=== PATIENT | female | born 1955 | race Caucasian/White ===

== ENCOUNTER 2021-11-06 17:43 | Observation (INO) ==
[2021-11-06] MEDS ORDERED: IOPAMIDOL 100 ML BOTTLE IV ONE (17:44)
--- NOTE | 2021-11-06 18:08 | Cat Scan Report ---
CLINICAL INFORMATION: Code stroke COMPARISON: None. TECHNIQUE: 2.5 mm helical slices were obtained in the skull base to vertex. Following reconstruction, axial reformatted images were reviewed at bone and parenchymal windows. The exam was performed using radiation dose optimization techniques including, but not limited to, automated exposure control, adjustment of the mA and/or kV according to patient size and use of iterative reconstruction technique. FINDINGS: The ventricles, sulci, fissures, and cisterns are symmetrically enlarged compatible with mild age-related atrophy. No extra-axial fluid collections are identified. Mild patchy chronic ischemic changes, in the deep cerebral white matter, are expected for age. There is no hemorrhage, mass effect, or edema. Bone windows show no osseous abnormality. IMPRESSION: Mild atrophy and chronic ischemic changes in the deep cerebral white matter-expected for age. No acute findings Interpreted and Authenticated by: Vishal Ortiz 11/06/21
[2021-11-06 18:26] LABS: POC Creatinine 0.8 mg/dL (0.6-1.2)
--- NOTE | 2021-11-06 18:30 | XRay Report ---
CLINICAL INFORMATION: Cough COMPARISON: 12/16/2020 TECHNIQUE: Portable FINDINGS: Moderate cardiomegaly is unchanged. Sternotomy changes noted. Mediastinum and pulmonary vasculature are unremarkable. Small patchy infiltrate is developed in the in the left base. Small left pleural effusion noted. The leak that IMPRESSION: Small patchy left basilar infiltrate and small effusion Interpreted and Authenticated by: Vishal Ortiz 11/06/21
[2021-11-06 19:08] LABS: Basophils # (Auto) 0.02 K/mcL (0.00-0.30); Basophils % (Auto) 0.4 % (0.0-2.0); Eosinophils # (Auto) 0.08 K/mcL (0.00-0.70); Eosinophils % (Auto) 1.7 % (0.0-7.0); Hematocrit 44.3 % (34.1-44.9); Hemoglobin 14.2 g/dL (11.2-15.7); Lymphocytes # (Auto) 1.59 K/mcL (1.50-4.80); Lymphocytes % (Auto) 33.1 % (15.5-49.0); Mean Cell Volume 86.9 fL (80.0-100.0); Mean Corpuscular HGB Conc 32.1 g/dL (31.0-36.0); Mean Platelet Volume 9.9 fL (7.4-10.4); Monocytes # (Auto) 0.46 K/mcL (0.10-0.90); Monocytes % (Auto) 9.6 % (1.0-12.0); Neutrophils % (Auto) 55.2 % (38.0-78.0); Platelet Count 202 K/mcL (140-440); Red Cell Distribution Width 13.7 % (11.5-14.5); WBC 4.8 K/mcL (4.5-11.0)
[2021-11-06 19:22] LABS: INR 1.2 (0.9-1.1); Prothrombin Time 15.9 sec (11.9-14.5)
[2021-11-06 19:33] LABS: ALT/SGPT 69 U/L (<40); AST/SGOT 36 U/L (<32); Albumin 4.9 gm/dL (3.2-5.2); Albumin/Globulin Ratio 1.7 (1.0-2.3); Alkaline Phosphatase 179 U/L (39-117); Bilirubin,Total 0.5 mg/dL (0.1-1.0); Blood Urea Nitrogen 11 mg/dL (8-23); Calcium 9.8 mg/dL (8.6-10.4); Carbon Dioxide 25 mmol/L (22-30); Chloride 99 mmol/L (96-108); Globulin 2.9 gm/dL (2.2-3.7); Glomerular Filtration Rate 78; Glucose 179 mg/dL (70-105)
[2021-11-06] MEDS ORDERED: 0.9 % SODIUM CHLORIDE 1,000 ML IV ONE (19:41)
--- NOTE | 2021-11-06 19:46 | Emergency Department Note ---
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 Patient has no history of TIA CVA. No symptoms of headache visual changes dizziness chest pain shortness of breath nausea vomiting abdominal pain. No numbness tingling or focal weakness. Currently symptoms have improved however patient still states that she feels a little slurred and heavy in her speech. Prior to her symptoms starting daughter states that patient arrived to her home at approximately 1 PM this afternoon was quite active cleaning etc. Related Data Home Medications Medication Instructions Recorded Confirmed acetaminophen 325 mg tablet 325 mg PO PRN PRN 02/13/19 10/07/21 aspirin 81 mg tablet,delayed 81 mg PO DAILY 02/13/19 10/07/21 release atorvastatin 40 mg tablet 40 mg PO HS 02/13/19 10/07/21 carvedilol 12.5 mg tablet 6.25 mg PO BIDCC 02/13/19 10/07/21 digoxin 125 mcg (0.125 mg) tablet 125 mcg PO DAILY 02/13/19 10/07/21 diltiazem HCl 180 mg 180 mg PO DAILY 02/13/19 10/07/21 capsule,extended release 24 hr furosemide 40 mg tablet 40 mg PO PRN PRN 02/13/19 10/07/21 glipizide 10 mg tablet, extended 20 mg PO DAILY 02/13/19 10/07/21 release 24 hr paroxetine HCl 40 mg tablet 50 mg PO DAILY 02/13/19 10/07/21 potassium chloride 10 mEq 10 meq PO BIDCC 02/13/19 10/07/21 tablet,extended release cholecalciferol (vitamin D3) 25 1,000 unit PO DAILY 05/10/19 10/07/21 mcg (1,000 unit) tablet montelukast 10 mg tablet 10 mg PO DAILY 05/10/19 10/07/21 albuterol sulfate 90 mcg/actuation 2 puff INHALATION .Q4-6H PRN g 10/03/20 10/07/21 aerosol inhaler (ProAir HFA) mometasone (Asmanex Twisthaler) 2 inh INHALATION BID PRN 10/03/20 10/07/21 rivaroxaban 20 mg tablet 20 mg PO QAM tab 10/03/20 10/07/21 salmeterol 50 mcg/dose blister 1 inh INHALATION QDAY PRN each 10/03/20 10/07/21 powder for inhalation (Serevent Diskus) spironolactone 25 mg tablet 37.5 mg PO DAILY tab 10/03/20 10/07/21 gabapentin 300 mg capsule 300 mg PO TID cap 10/04/20 10/07/21 insulin aspart U-100 100 unit/mL 15 unit SUB-Q TIDAC ml 10/04/20 10/07/21 (3 mL) subcutaneous pen (Novolog Flexpen U-100 Insulin aspart) linagliptin 5 mg tablet (Tradjenta) 5 mg PO QDAY 10/04/20 10/07/21 lorazepam 0.5 mg tablet 0.5 mg PO QDAY PRN tab 10/04/20 10/07/21 paroxetine HCl 10 mg tablet 10 mg PO QDAY 10/04/20 10/07/21 insulin glargine 100 unit/mL 100 unit SUBCUT QDAY ml 01/14/21 10/07/21 subcutaneous solution (Lantus U-100 Insulin) ascorbate calcium (vitamin C) 500 500 mg PO QDAY 01/29/21 10/07/21 mg tablet buspirone 10 mg tablet 10 mg PO .Unknown tab 01/29/21 10/07/21 hydrocodone 10 mg-acetaminophen See Rx Instructions PO .Q4-6H tab 01/29/21 10/07/21 325 mg tablet hydrocodone 5 mg-acetaminophen 325 See Rx Instructions PO .Q4-6H tab 01/29/21 10/07/21 mg tablet ibuprofen 800 mg tablet 800 mg PO TID 01/29/21 10/07/21 oxycodone-acetaminophen 7.5 mg-325 See Rx Instructions PO .Q4-6H tab 01/29/21 10/07/21 mg tablet (Percocet) paroxetine HCl 20 mg tablet 20 mg PO QDAY 01/29/21 10/07/21 pravastatin 40 mg tablet 40 mg PO QDAY 01/29/21 10/07/21 sennosides 8.6 mg tablet (Natural 8.6 mg PO .unknown tab 01/29/21 10/07/21 Senna Laxative) tramadol 50 mg tablet See Rx Instructions PO TID 01/29/21 10/07/21 dapagliflozin 10 mg tablet 10 mg PO QAM 10/07/21 10/07/21 [facility] prednisone PO 10/07/21 10/07/21 aripiprazole 5 mg PO DAILY 11/06/21 11/06/21 donepezil 5 mg PO DAILY 11/06/21 11/06/21 terbinafine 250 mg PO DAILY 11/06/21 11/06/21 tizanidine 2 - 4 mg PO PRN PRN 11/06/21 11/06/21 Previous Rx's Medication Instructions Recorded nitroglycerin 0.4 mg sublingual 0.4 mg SL Q5MINP PRN #1 vial 01/01/17 tablet hydrocodone 7.5 mg-acetaminophen 1 - 2 tab PO Q6HP PRN #30 tab 05/18/19 325 mg tablet Allergies Allergy/AdvReac Type Severity Reaction Status Date / Time naproxen [NAPROXEN] Allergy Severe Anaphylaxis, Verified 10/07/21 11:33 CAN'T BREATHE, SWELLING Sulfa (Sulfonamide Allergy Severe Rash, HIVES Verified 10/07/21 11:33 Antibiotics) [SULFA (SULFONAMIDE ANTIBIOTICS)] Penicillins Allergy Intermediate Rash Verified 10/07/21 11:33 Flecainide Allergy Mild Rash Verified 10/07/21 11:33 lisinopril Allergy Mild Rash Verified 10/07/21 11:33 amiodarone AdvReac Severe Vomiting Verified 10/07/21 11:33 ADHESIVE TAPE Allergy Mild Rash Uncoded 10/07/21 11:33 -PAPER TAPE OK Review of Systems ROS ROS Narrative: 10 point review of system is otherwise negative except as mentioned in HPI. PFSH Narrative Patient History Narrative: Narrative: Medical/Surgical/Family History All Active Problems (Updated 11/06/21 @ 19:53 by Barbara Thomas MD) Dysarthria (Acute) Gout (Chronic) Diabetes (Chronic) Low back pain (Chronic) Chest pain (Acute) Menopausal state (Chronic) Pain in unspecified joint (Chronic) Pain, unspecified (Chronic) Osteoarthrosis, hip (Chronic) Opioid dependence, uncomplicated (Chronic) Morbid (severe) obesity due to excess calories (Chronic) Obesity (Chronic) Sleep apnea (Chronic) COPD (chronic obstructive pulmonary disease) (Chronic) History of total left hip arthroplasty (Chronic ~2019) History of ankle surgery (Chronic 05/18/19) History of hip surgery (Chronic ~07/2018) History of surgery on left wrist (Chronic ~01/2019) History of colonoscopy (Chronic 04/13/13) History of heart surgery (Chronic) History of biopsy (Chronic 08/04/13) History of liver biopsy (Chronic 09/04/13) History of arthroscopy of left shoulder (Chronic 07/21/17) History of cholecystectomy (Chronic ~05/2012) History of appendectomy (Chronic) History of tonsillectomy (Chronic) History of heart surgery (Chronic) Pain, joint, ankle, right (Chronic) Pain of left hip joint (Chronic) Chronic low back pain (Chronic) Pain in joint, multiple sites (Chronic) History of total hysterectomy (Chronic) Chronic dermatitis (Chronic) Chronic constipation (Chronic) Urinary incontinence (Chronic) Other deformities of toe(s) (acquired), left foot (Chronic) Hip osteoarthritis (Chronic) Depression (Chronic) Anxiety (Chronic) Nonalcoholic fatty liver disease (Chronic) Lower extremity edema (Chronic) Vitamin D deficiency (Chronic) Hyperlipidemia (Chronic) Anemia (Chronic) Diabetic neuropathy (Chronic) Microalbuminuric diabetic nephropathy (Chronic) Type 2 diabetes mellitus with hyperglycemia (Chronic) Hypertension (Chronic) Cardiomyopathy (Chronic) Atrial fibrillation (Chronic) Asthma (Chronic) MCFP (current) use of opiate analgesic (Chronic) Other instability, right ankle (Chronic) Strain of muscle(s) and tendon(s) of peroneal muscle group at lower leg level, right leg, subsequent encounter (Chronic) Hematoma (Chronic) Other injury of muscle(s) and tendon(s) of peroneal muscle group at lower leg level, left leg, sequela (Chronic) Ganglion cyst (Chronic) Dysuria (Chronic) Vaginitis (Chronic) Body mass index 40.0-44.9, adult (Chronic) Dry cough (Chronic) History of itching of eye (Chronic) Hematuria (Chronic) Suprapubic pain (Chronic) Congestive heart failure (Chronic) Hypoxia (Chronic) Chest pain (Chronic) PAC (premature atrial contraction) (Chronic) Hip pain, right (Chronic) Numbness of right anterior thigh (Chronic) Acute sinus infection (Chronic) Migraine (Chronic) Medical History Anemia Anxiety Asthma Atrial fibrillation Body mass index 40.0-44.9, adult Cardiomyopathy Chest pain Chronic constipation Chronic dermatitis Chronic low back pain Congestive heart failure COPD (chronic obstructive pulmonary disease) Depression Diabetes Diabetic neuropathy Dry cough Dysuria Ganglion cyst Gout Hematoma Hematuria Hip osteoarthritis History of itching of eye Hyperlipidemia Hypertension Hypoxia MCFP (current) use of opiate analgesic Low back pain Lower extremity edema Menopausal state Microalbuminuric diabetic nephropathy Morbid (severe) obesity due to excess calories Nonalcoholic fatty liver disease Obesity Opioid dependence, uncomplicated Osteoarthrosis, hip Other deformities of toe(s) (acquired), left foot Other injury of muscle(s) and tendon(s) of peroneal muscle group at lower leg level, left leg, sequela Other instability, right ankle PAC (premature atrial contraction) Pain in joint, multiple sites Pain in unspecified joint Pain of left hip joint Pain, joint, ankle, right Pain, unspecified Sleep apnea Strain of muscle(s) and tendon(s) of peroneal muscle group at lower leg level, right leg, subsequent encounter Suprapubic pain Type 2 diabetes mellitus with hyperglycemia Urinary incontinence Vaginitis Vitamin D deficiency Surgical History History of ankle surgery (05/18/19) Dr. Carter, Right ankle, History of appendectomy History of arthroscopy of left shoulder (07/21/17) History of biopsy (08/04/13) esophageal biopsy;positive for squamous esophageal mucosa with chronic inflammation -- Dr. Sampson History of cholecystectomy (~05/2012) History of colonoscopy (04/13/13) History of heart surgery Hemangioma removal History of heart surgery 1973 and 2010 History of hip surgery (~07/2018) Right - Dr. Gonzalez History of liver biopsy (09/04/13) Core liver biopsy History of surgery on left wrist (~01/2019) History of tonsillectomy History of total hysterectomy History of total left hip arthroplasty (~2019) Family History Mother , age 86 Diabetes Heart disease Rheumatoid arthritis History of blood clots Heart attack Gout Father , age 89 Diabetes Rheumatoid arthritis Heart attack Coronary artery disease Family/Other Gout Sibling Social History Smoking Status: Former smoker Alcohol Intake Frequency: does not drink Substance Use: does not use Exam Narrative Narrative: (Please note that portions of this note may have been completed with a voice recognition program. Efforts were made to edit the dictations but occasionally words are mis-transcribed) CONSTITUTIONAL: Well-nourished well-hydrated adult female. Resting comfortably. Not in acute distress. Non toxic. Awake alert and oriented x3. Cooperative, follows commands. HEAD: Normocephalic. Atraumatic. EYES: EOMI. PERRL. no gross peripheral visual field defects. no nystagmus ENT: No drooling stridor. No facial droop. Does have mild dysarthria however no aphasia NECK: Supple. Full range of motion. Trachea midline CARDIOVASCULAR: Adequate peripheral perfusion. S1-S2. Regular rate and rhythm. No murmurs rubs gallops. No JVD. No lower extremity edema. +2 radial pulses bilaterally. PULMONARY: Nonlabored. Speaking full sentences. Clear to auscultation bilaterally. No rhonchi wheeze or crackles. ABDOMINAL: Soft. Nondistended. Nontender. Positive bowel sounds. EXTREMITIES: No gross deformities. Moves all 4 extremities with good strength and tone. SKIN: Warm and dry. No rash. No petechiae. NEUROLOGY: Sensation is intact. No gross focal deficits. GCS of 15. No cerebellar deficits. NIH SS 1 General Limitations: no limitations Course Vital Signs Vital signs: Vital Signs Temperature 37.1 C 11/06/21 17:43 Pulse Rate 83 11/06/21 17:43 Respiratory Rate 18 11/06/21 17:43 Blood Pressure 154/69 11/06/21 17:43 Pulse Oximetry (%) 90 11/06/21 17:43 Temperature 37.1 C 11/06/21 17:43 Pulse Rate 78 11/06/21 19:55 Respiratory Rate 13 11/06/21 19:55 Blood Pressure 135/68 11/06/21 19:47 Pulse Oximetry (%) 95 11/06/21 19:55 MDM MDM Narrative Medical decision making narrative: Differential diagnosis includes CVA ischemic hemorrhagic mass lesion dissection electrolyte abnormality arrhythmia etc. stroke alert. Per daughter glucose was checked at home and it was 170. CT brain was negative per radiology call back at 6:10pm. Patient did take her Xarelto as well as aspirin this morning. I did speak to the stroke neurologist at 6:23 PM. Does agree with work-up thus far CT angio and admission. Twelve-lead EKG per ED MD interpretation does show a normal sinus rhythm at 80 bpm. Normal axis. Left ventricular hypertrophy. With no ST elevations or depressions. No T wave abnormalities. No ectopy. Normal intervals. CT angio of the head and neck is negative per radiologist for significant stenosis. Does show incidental cardiomegaly, large inguinal mass containing multiple round calcifications, CAD. patient is otherwise resting comfortably. Continues have some mild dysarthria. Otherwise no complaints. Chest x-ray does show left basilar infiltrate effusion. However patient denies fever chills cough shortness of breath. Lungs are clear to auscultation on my exam. She is 95% on room air. No white count. We will continue to monitor no antibiotics at this time. Urine dip is negative for infection. Patient and daughter updated on results clinical impressions treatment plan. Will admit for stroke work-up. Agreeable questions have answered at length. Hospitalist has been paged. Dr Angela given report and does accept Final impressions 1. Dysarthria, suspect ischemic CVA 2. Paroxysmal atrial fibrillation on Xarelto 3. Left pleural effusion Disposition: admit tele condition: fair Lab Data Result diagrams: 11/06/21 18:17 11/06/21 18:17 Labs: Lab Results 11/06/21 11/06/21 11/06/21 Range/Units 18:17 18:17 18:17 WBC 4.8 (4.5-11.0) K/mcL RBC 5.10 (3.59-5.38) M/mcL Hgb 14.2 (11.2-15.7) g/dL Hct 44.3 (34.1-44.9) % MCV 86.9 (80.0-100.0) fL MCH 27.8 (26.0-34.0) pg MCHC 32.1 (31.0-36.0) g/dL RDW 13.7 (11.5-14.5) % Plt Count 202 (140-440) K/mcL MPV 9.9 (7.4-10.4) fL Neut % (Auto) 55.2 (38.0-78.0) % Lymph % (Auto) 33.1 (15.5-49.0) % [place] % (Auto) 9.6 (1.0-12.0) % Eos % (Auto) 1.7 (0.0-7.0) % Baso % (Auto) 0.4 (0.0-2.0) % Lymph # (Auto) 1.59 (1.50-4.80) K/mcL [place] # (Auto) 0.46 (0.10-0.90) K/mcL Eos # (Auto) 0.08 (0.00-0.70) K/mcL Baso # (Auto) 0.02 (0.00-0.30) K/mcL Absolute Neutrophils 2.65 (1.80-8.00) K/mcL PT 15.9 H (11.9-14.5) sec INR 1.2 H (0.9-1.1) APTT (20.0-37.0) sec Sodium 137 (133-145) mmol/L Potassium 3.7 (3.3-5.1) mmol/L Chloride 99 (96-108) mmol/L Carbon Dioxide 25 (22-30) mmol/L Anion Gap 13.0 (8.0-16.0) BUN 11 (8-23) mg/dL Creatinine 0.8 (0.6-1.1) mg/dL POC Creatinine 0.8 (0.6-1.2) mg/dL GFR Calculation 78 Glucose 179 H (70-105) mg/dL Calcium 9.8 (8.6-10.4) mg/dL Total Bilirubin 0.5 (0.1-1.0) mg/dL AST 36 H (<32) U/L ALT 69 H (<40) U/L Alkaline Phosphatase 179 H (39-117) U/L Troponin T (<0.03) ng/mL Total Protein 7.8 (5.9-8.4) gm/dL Albumin 4.9 (3.2-5.2) gm/dL Globulin 2.9 (2.2-3.7) gm/dL Albumin/Globulin Ratio 1.7 (1.0-2.3) Urine Color Urine Appearance (Clear) Urine pH (5.0-9.0) Ur Specific [place] (1.000-1.035) Urine Protein (Negative) mg/dL Urine Glucose (UA) (Negative) mg/dL Urine Ketones (Negative) mg/dL Urine Occult Blood (Negative) brandon/mcL Urine Nitrate (Negative) Urine Bilirubin (Negative) mg/dL Urine Urobilinogen mg/dL Ur Leukocyte Esterase (Negative) /uL Urine RBC (0-3) /hpf Urine WBC (0-4) /hpf Ur Squamous Epith Cells (0-4) /hpf Urine Bacteria (0) /hpf Ur Culture Indicated? 11/06/21 11/06/21 11/06/21 Range/Units 18:17 18:17 19:10 WBC (4.5-11.0) K/mcL RBC (3.59-5.38) M/mcL Hgb (11.2-15.7) g/dL Hct (34.1-44.9) % MCV (80.0-100.0) fL MCH (26.0-34.0) pg MCHC (31.0-36.0) g/dL RDW (11.5-14.5) % Plt Count (140-440) K/mcL MPV (7.4-10.4) fL Neut % (Auto) (38.0-78.0) % Lymph % (Auto) (15.5-49.0) % [place] % (Auto) (1.0-12.0) % Eos % (Auto) (0.0-7.0) % Baso % (Auto) (0.0-2.0) % Lymph # (Auto) (1.50-4.80) K/mcL [place] # (Auto) (0.10-0.90) K/mcL Eos # (Auto) (0.00-0.70) K/mcL Baso # (Auto) (0.00-0.30) K/mcL Absolute Neutrophils (1.80-8.00) K/mcL PT (11.9-14.5) sec INR (0.9-1.1) APTT 30.9 (20.0-37.0) sec Sodium (133-145) mmol/L Potassium (3.3-5.1) mmol/L Chloride (96-108) mmol/L Carbon Dioxide (22-30) mmol/L Anion Gap (8.0-16.0) BUN (8-23) mg/dL Creatinine (0.6-1.1) mg/dL POC Creatinine (0.6-1.2) mg/dL GFR Calculation Glucose (70-105) mg/dL Calcium (8.6-10.4) mg/dL Total Bilirubin (0.1-1.0) mg/dL AST (<32) U/L ALT (<40) U/L Alkaline Phosphatase (39-117) U/L Troponin T < 0.01 (<0.03) ng/mL Total Protein (5.9-8.4) gm/dL Albumin (3.2-5.2) gm/dL Globulin (2.2-3.7) gm/dL Albumin/Globulin Ratio (1.0-2.3) Urine Color Yellow Urine Appearance Clear (Clear) Urine pH 5.5 (5.0-9.0) Ur Specific [place] 1.015 (1.000-1.035) Urine Protein Negative (Negative) mg/dL Urine Glucose (UA) >=1000 mg/dl A (Negative) mg/dL Urine Ketones Negative (Negative) mg/dL Urine Occult Blood Negative (Negative) brandon/mcL Urine Nitrate Negative (Negative) Urine Bilirubin Negative (Negative) mg/dL Urine Urobilinogen Normal mg/dL Ur Leukocyte Esterase Negative (Negative) /uL Urine RBC 1 (0-3) /hpf Urine WBC < 1 (0-4) /hpf Ur Squamous Epith Cells < 1 (0-4) /hpf Urine Bacteria None (0) /hpf Ur Culture Indicated? No Discharge Plan Patient/Caregiver Discharge Instructions Pt seen by TRUST MANAGER/PA only: No Clinical Impression: Dysarthria Patient Disposition: Xfer As Outpt/Obs ([facility]) Follow up with: Jocelyn Dahl ARNP [Primary Care Provider] - Prescriptions: No Action Serevent Diskus 50 mcg/dose blister with device 1 inh INHALATION QDAY PRN (Reason: asthma) 0RF albuterol sulfate [ProAir HFA] 90 mcg/actuation HFA aerosol inhaler 2 puff INHALATION .Q4-6H PRN (Reason: Shortness Of Breath) 0RF Asmanex Twisthaler 220 mcg/ actuation (120) aerosol powdr breath activated 2 inh INHALATION BID PRN (Reason: asthma) 0RF Tradjenta 5 mg tablet 5 mg PO QDAY 0RF paroxetine HCl 10 mg tablet 10 mg PO QDAY 0RF tramadol 50 mg tablet See Rx Instructions PO TID 0RF Rx Instructions: 50mg, 1-2 tabs PO three times daily; ibuprofen 800 mg tablet 800 mg PO PRN PRN (Reason: Pain) 0RF hydrocodone-acetaminophen 5-325 mg tablet 1 - 2 tab PO .Q4-6H PRN (Reason: Pain) 0RF hydrocodone-acetaminophen 10-325 mg tablet See Rx Instructions PO .Q4-6H 0RF Rx Instructions: 1-2 tablets PO .Q4-6H; oxycodone-acetaminophen [Percocet] 7.5-325 mg tablet See Rx Instructions PO .Q4-6H 0RF Rx Instructions: 1-2 tabs PO .Q4-6H; sennosides [Natural Senna Laxative] 8.6 mg tablet 8.6 mg PO .unknown 0RF pravastatin 40 mg tablet 40 mg PO QDAY 0RF paroxetine HCl 20 mg tablet 20 mg PO QDAY 0RF ascorbate calcium (vitamin C) 500 mg tablet 500 mg PO QDAY 0RF buspirone 10 mg tablet 7.5 mg PO TID 0RF Lantus U-100 Insulin 100 unit/mL solution 100 unit subcut QDAY 0RF prednisone 20 mg PO DAILY 0RF Rx Instructions: unsure of what dose Farxiga 10 mg tablet 10 mg PO QAM 0RF nitroglycerin 0.4 MG tablet, sublingual 0.4 mg SL Q5MINP PRN (Reason: chest pain or heaviness) Qty: 1 0RF atorvastatin 40 MG tablet 40 mg PO HS 0RF Label Comments: NO LONGER TAKING USING PRAVASTATIN NOW acetaminophen 325 MG tablet 325 mg PO PRN PRN (Reason: Pain) 0RF diltiazem HCl 180 MG capsule,extended release 24hr 180 mg PO DAILY 0RF glipizide 10 MG tablet extended release 24hr 20 mg PO DAILY 0RF potassium chloride 10 MEQ tablet extended release 10 meq PO BIDCC 0RF aspirin 81 MG tablet,delayed release (DR/EC) 81 mg PO DAILY 0RF digoxin 125 MCG tablet 125 mcg PO DAILY 0RF paroxetine HCl 40 MG tablet 50 mg PO DAILY 0RF carvedilol 12.5 MG tablet 6.25 mg PO BIDCC 0RF Rx Instructions: give with food (meal/snack) furosemide 40 MG tablet 40 mg PO PRN PRN (Reason: Edema) 0RF spironolactone 25 mg tablet 37.5 mg PO DAILY 0RF rivaroxaban 20 mg tablet 20 mg PO QAM 0RF Label Comments: STOP 5 DAYS PRIOR TO SURGERY PER DR DAVIS AND RESUME FOLLOWING SURGERY lorazepam 0.5 mg tablet 0.5 mg PO PRN PRN (Reason: Anxiety) 0RF gabapentin 300 mg capsule 300 mg PO TID 0RF montelukast 10 MG tablet 10 mg PO DAILY 0RF cholecalciferol (vitamin D3) 1,000 UNIT tablet 1,000 unit PO DAILY 0RF hydrocodone-acetaminophen 1 TAB tablet 1 - 2 tab PO Q6HP PRN (Reason: Pain) Qty: 30 0RF insulin aspart U-100 [Novolog Flexpen U-100 Insulin] 100 unit/mL (3 mL) insulin pen 15 unit SUB-Q TIDAC 0RF Rx Instructions: TAKES IF BS >200 donepezil 5 mg tablet 5 mg PO DAILY 0RF tizanidine 2 mg tablet 2 - 4 mg PO PRN PRN (Reason: Muscle Spasticity) 0RF Rx Instructions: TAKE 1-2 TABLETS BY MOUTH EVERY 4-6 HOURS NEEDED FOR MUSCLE TENSION. WILL CAUSE SEDATION. aripiprazole 5 MG tablet 5 mg PO DAILY 0RF Rx Instructions: AT BEDTIME. terbinafine 250 MG tablet 250 mg PO DAILY 0RF
[2021-11-06 19:52] LABS: Appearance,Urine Clear (Clear); Bilirubin,Urine Negative (Negative); Color,Urine Yellow; Culture Indicated,Urine No; Glucose,Urine (UA) >=1000 mg/dL mg/dL (Negative); Ketones,Urine Negative (Negative); Leukocyte Esterase,Urine Negative /uL (Negative); Nitrate,Urine Negative (Negative); PH,Urine 5.5 (5.0-9.0); Protein,Urine Negative (Negative); Specific Gravity,Urine 1.015 (1.000-1.035); Urine Blood Negative ery/mcL (Negative); Urine RBC 1 /hpf (0-3); Urine Squamous Epithelial Cell < 1 /hpf (0-4); Urine WBC < 1 /hpf (0-4); Urobilinogen,Urine Normal
--- NOTE | 2021-11-06 20:19 | Internal Med History&Physical ---
HPI History of Present Illness Patient information: Note initiated : 11/06/21 at 8:14 pm Service Date, if different from initiated Date: [] Patient: Gisselle Figueredo a 65 y/o F admitted on for Trouble finding words. Chief Complaint: [] Chief complaint: Aphasia History of present illness: Ms. 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 The patient says that her symptoms began this evening at about 7:30 PM. Patient had a noncontrast head CT in the ED which did not show any acute changes. CTA head and neck report was pending when I spoke with the ED provider however I was told that radiology felt they were unremarkable. The patient was reviewed with telestroke neurology, recommendation was made to admit the patient to the hospital for further work-up for possible stroke. I evaluated the patient in the emergency department, her expressive aphasia had essentially resolved. She says that she had similar symptoms a few months ago which was evaluated at [facility] where the work-up including MRI brain was negative. She also had a similar episode about a year ago. Other work-up in the ED included CBC and chemistry panel which were unremarkable. Chest x-ray showed a small patchy left basilar infiltrate and small effusion however the patient clinically did not have any symptoms of pneumonia. Procalcitonin was 0.13. Review of system Constitutional: no fever, fatigue, or weight loss Eyes: no vision changes or pain Cardiovascular: no chest pain, no palpitations Respiratory: no cough or dyspnea Gastrointestinal: no abdominal pain, no nausea, vomiting, or diarrhea Genitourinary: no dysuria or difficulty voiding Musculoskeletal: no arthralgia or myalgia Integumentary: no skin lesion or wound Neurological: Positive for difficulty talking, focal weakness or numbness Psychiatric: no anxiety or depression Physical exam Head: Atraumatic, normal inspection. Eyes: normal appearance, no scleral icterus. Neck: full ROM Respiratory: no respiratory distress. Cardiovascular: Sternotomy scar, normal rate and rhythm, S1, S2. GI/Abdominal: soft, nontender, no guarding. Extremities: full range of motion, nontender. Neurological: CN II-XII intact, intact motor, intact sensation. Psychiatric: normal mood. Skin: warm, normal color PFSH PFSH All Active Problems (Updated 11/06/21 @ 19:53 by Barbara Thomas MD) Dysarthria (Acute) Gout (Chronic) Diabetes (Chronic) Low back pain (Chronic) Chest pain (Acute) Menopausal state (Chronic) Pain in unspecified joint (Chronic) Pain, unspecified (Chronic) Osteoarthrosis, hip (Chronic) Opioid dependence, uncomplicated (Chronic) Morbid (severe) obesity due to excess calories (Chronic) Obesity (Chronic) Sleep apnea (Chronic) COPD (chronic obstructive pulmonary disease) (Chronic) History of total left hip arthroplasty (Chronic ~2019) History of ankle surgery (Chronic 05/18/19) History of hip surgery (Chronic ~07/2018) History of surgery on left wrist (Chronic ~01/2019) History of colonoscopy (Chronic 04/13/13) History of heart surgery (Chronic) History of biopsy (Chronic 08/04/13) History of liver biopsy (Chronic 09/04/13) History of arthroscopy of left shoulder (Chronic 07/21/17) History of cholecystectomy (Chronic ~05/2012) History of appendectomy (Chronic) History of tonsillectomy (Chronic) History of heart surgery (Chronic) Pain, joint, ankle, right (Chronic) Pain of left hip joint (Chronic) Chronic low back pain (Chronic) Pain in joint, multiple sites (Chronic) History of total hysterectomy (Chronic) Chronic dermatitis (Chronic) Chronic constipation (Chronic) Urinary incontinence (Chronic) Other deformities of toe(s) (acquired), left foot (Chronic) Hip osteoarthritis (Chronic) Depression (Chronic) Anxiety (Chronic) Nonalcoholic fatty liver disease (Chronic) Lower extremity edema (Chronic) Vitamin D deficiency (Chronic) Hyperlipidemia (Chronic) Anemia (Chronic) Diabetic neuropathy (Chronic) Microalbuminuric diabetic nephropathy (Chronic) Type 2 diabetes mellitus with hyperglycemia (Chronic) Hypertension (Chronic) Cardiomyopathy (Chronic) Atrial fibrillation (Chronic) Asthma (Chronic) assisted (current) use of opiate analgesic (Chronic) Other instability, right ankle (Chronic) Strain of muscle(s) and tendon(s) of peroneal muscle group at lower leg level, right leg, subsequent encounter (Chronic) Hematoma (Chronic) Other injury of muscle(s) and tendon(s) of peroneal muscle group at lower leg level, left leg, sequela (Chronic) Ganglion cyst (Chronic) Dysuria (Chronic) Vaginitis (Chronic) Body mass index 40.0-44.9, adult (Chronic) Dry cough (Chronic) History of itching of eye (Chronic) Hematuria (Chronic) Suprapubic pain (Chronic) Congestive heart failure (Chronic) Hypoxia (Chronic) Chest pain (Chronic) PAC (premature atrial contraction) (Chronic) Hip pain, right (Chronic) Numbness of right anterior thigh (Chronic) Acute sinus infection (Chronic) Migraine (Chronic) Medical History Anemia Anxiety Asthma Atrial fibrillation Body mass index 40.0-44.9, adult Cardiomyopathy Chest pain Chronic constipation Chronic dermatitis Chronic low back pain Congestive heart failure COPD (chronic obstructive pulmonary disease) Depression Diabetes Diabetic neuropathy Dry cough Dysuria Ganglion cyst Gout Hematoma Hematuria Hip osteoarthritis History of itching of eye Hyperlipidemia Hypertension 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 Low back pain Lower extremity edema Menopausal state Microalbuminuric diabetic nephropathy Morbid (severe) obesity due to excess calories Nonalcoholic fatty liver disease Obesity Opioid dependence, uncomplicated Osteoarthrosis, hip Other deformities of toe(s) (acquired), left foot Other injury of muscle(s) and tendon(s) of peroneal muscle group at lower leg level, left leg, sequela Other instability, right ankle PAC (premature atrial contraction) Pain in joint, multiple sites Pain in unspecified joint Pain of left hip joint Pain, joint, ankle, right Pain, unspecified Sleep apnea Strain of muscle(s) and tendon(s) of peroneal muscle group at lower leg level, right leg, subsequent encounter Suprapubic pain Type 2 diabetes mellitus with hyperglycemia Urinary incontinence Vaginitis Vitamin D deficiency Surgical History History of ankle surgery (05/18/19) Dr. Carter, Right ankle, History of appendectomy History of arthroscopy of left shoulder (07/21/17) History of biopsy (08/04/13) esophageal biopsy;positive for squamous esophageal mucosa with chronic inflammation -- Dr. Sampson History of cholecystectomy () History of colonoscopy (08/15/13) History of heart surgery Hemangioma removal History of heart surgery 1973 and 2010 History of hip surgery (~07/2018) Right - Dr. Gonzalez History of liver biopsy (09/04/13) Core liver biopsy History of surgery on left wrist (~01/2019) History of tonsillectomy History of total hysterectomy History of total left hip arthroplasty (~2019) Family History Mother , age 86 Diabetes Heart disease Rheumatoid arthritis History of blood clots Heart attack Gout Father , age 89 Diabetes Rheumatoid arthritis Heart attack Coronary artery disease Family/Other Gout Sibling Social History marital status: occupational status: disabled physical activity: none smoking status: Former smoker alcohol intake frequency: does not drink substance use type: does not use MEDS/ALLERGIES Home Medications and Allergies Home Medications Medication Instructions Recorded Confirmed Type nitroglycerin 0.4 mg sublingual 0.4 mg SL Q5MINP PRN #1 vial 01/01/17 11/06/21 Rx tablet aspirin 81 mg tablet,delayed 81 mg PO DAILY 02/13/19 11/06/21 History release atorvastatin 40 mg tablet 40 mg PO HS 02/13/19 11/06/21 History carvedilol 12.5 mg tablet 6.25 mg PO BIDCC 02/13/19 11/06/21 History digoxin 125 mcg (0.125 mg) tablet 125 mcg PO DAILY 02/13/19 11/06/21 History diltiazem HCl 180 mg 180 mg PO DAILY 02/13/19 11/06/21 History capsule,extended release 24 hr furosemide 40 mg tablet 40 mg PO PRN PRN 02/13/19 11/06/21 History glipizide 10 mg tablet, extended 20 mg PO DAILY 02/13/19 11/06/21 History release 24 hr paroxetine HCl 40 mg tablet 50 mg PO DAILY 02/13/19 11/06/21 History potassium chloride 10 mEq 10 meq PO BIDCC 02/13/19 11/06/21 History tablet,extended release cholecalciferol (vitamin D3) 25 1,000 unit PO DAILY 05/10/19 11/06/21 History mcg (1,000 unit) tablet montelukast 10 mg tablet 10 mg PO DAILY 05/10/19 11/06/21 History albuterol sulfate 90 mcg/actuation 2 puff INHALATION .Q4-6H PRN g 10/03/20 11/06/21 History aerosol inhaler (ProAir HFA) mometasone (Asmanex Twisthaler) 2 inh INHALATION BID PRN 10/03/20 11/06/21 History salmeterol 50 mcg/dose blister 1 inh INHALATION QDAY PRN each 10/03/20 11/06/21 History powder for inhalation (Serevent Diskus) spironolactone 25 mg tablet 37.5 mg PO DAILY tab 10/03/20 11/06/21 History gabapentin 300 mg capsule 300 mg PO TID cap 10/04/20 11/06/21 History insulin aspart U-100 100 unit/mL 15 unit SUB-Q TIDAC ml 10/04/20 11/06/21 History (3 mL) subcutaneous pen (Novolog Flexpen U-100 Insulin aspart) linagliptin 5 mg tablet (Tradjenta) 5 mg PO QDAY 10/04/20 11/06/21 History lorazepam 0.5 mg tablet 0.5 mg PO PRN PRN tab 10/04/20 11/06/21 History paroxetine HCl 10 mg tablet 10 mg PO QDAY 10/04/20 11/06/21 History insulin glargine 100 unit/mL 100 unit SUBCUT QDAY ml 01/14/21 11/06/21 History subcutaneous solution (Lantus U-100 Insulin) ascorbate calcium (vitamin C) 500 500 mg PO QDAY 01/29/21 11/06/21 History mg tablet buspirone 10 mg tablet 7.5 mg PO TID tab 01/29/21 11/06/21 History hydrocodone 5 mg-acetaminophen 325 1 - 2 tab PO .Q4-6H PRN tab 01/29/21 11/06/21 History mg tablet ibuprofen 800 mg tablet 800 mg PO PRN PRN 01/29/21 11/06/21 History prednisone 20 mg PO DAILY 10/07/21 11/06/21 History aripiprazole 5 mg PO DAILY 11/06/21 11/06/21 History donepezil 5 mg PO DAILY 11/06/21 11/06/21 History terbinafine 250 mg PO DAILY 11/06/21 11/06/21 History tizanidine 2 - 4 mg PO PRN PRN 11/06/21 11/06/21 History Allergies Allergy/AdvReac Type Severity Reaction Status Date / Time naproxen [NAPROXEN] Allergy Severe Anaphylaxis, Verified 10/07/21 11:33 CAN'T BREATHE, SWELLING Sulfa (Sulfonamide Allergy Severe Rash, HIVES Verified 10/07/21 11:33 Antibiotics) [SULFA (SULFONAMIDE ANTIBIOTICS)] Penicillins Allergy Intermediate Rash Verified 10/07/21 11:33 Flecainide Allergy Mild Rash Verified 10/07/21 11:33 lisinopril Allergy Mild Rash Verified 10/07/21 11:33 amiodarone AdvReac Severe Vomiting Verified 10/07/21 11:33 ADHESIVE TAPE Allergy Mild Rash Uncoded 10/07/21 11:33 -PAPER TAPE OK EXAM Constitutional Vitals: Temp Pulse Resp BP Pulse Ox 98.8 F 78 13 135/68 95 11/06/21 17:43 11/06/21 19:55 11/06/21 19:55 11/06/21 19:47 11/06/21 19:55 DATA Data Completed and Pending Labs: Labs from last 24 hours 11/06/21 11/06/21 11/06/21 19:10 18:17 18:17 WBC RBC Hgb Hct MCV MCH MCHC RDW Plt Count MPV Neut % (Auto) Lymph % (Auto) Hughes % (Auto) Eos % (Auto) Baso % (Auto) Lymph # (Auto) Hughes # (Auto) Eos # (Auto) Baso # (Auto) Absolute Neutrophils PT INR APTT 30.9 Sodium Potassium Chloride Carbon Dioxide Anion Gap BUN Creatinine POC Creatinine GFR Calculation Glucose Calcium Total Bilirubin AST ALT Alkaline Phosphatase Troponin T < 0.01 Total Protein Albumin Globulin Albumin/Globulin Ratio Urine Color Yellow Urine Appearance Clear Urine pH 5.5 Ur Specific Wrights 1.015 Urine Protein Negative Urine Glucose (UA) >=1000 mg/dl A Urine Ketones Negative Urine Occult Blood Negative Urine Nitrate Negative Urine Bilirubin Negative Urine Urobilinogen Normal Ur Leukocyte Esterase Negative Urine RBC 1 Urine WBC < 1 Ur Squamous Epith Cells < 1 Urine Bacteria None Ur Culture Indicated? No 11/06/21 11/06/21 11/06/21 18:17 18:17 18:17 WBC 4.8 RBC 5.10 Hgb 14.2 Hct 44.3 MCV 86.9 MCH 27.8 MCHC 32.1 RDW 13.7 Plt Count 202 MPV 9.9 Neut % (Auto) 55.2 Lymph % (Auto) 33.1 Hughes % (Auto) 9.6 Eos % (Auto) 1.7 Baso % (Auto) 0.4 Lymph # (Auto) 1.59 Hughes # (Auto) 0.46 Eos # (Auto) 0.08 Baso # (Auto) 0.02 Absolute Neutrophils 2.65 PT 15.9 H INR 1.2 H APTT Pending Sodium 137 Potassium 3.7 Chloride 99 Carbon Dioxide 25 Anion Gap 13.0 BUN 11 Creatinine 0.8 POC Creatinine 0.8 GFR Calculation 78 Glucose 179 H Calcium 9.8 Total Bilirubin 0.5 AST 36 H ALT 69 H Alkaline Phosphatase 179 H Troponin T Total Protein 7.8 Albumin 4.9 Globulin 2.9 Albumin/Globulin Ratio 1.7 Urine Color Urine Appearance Urine pH Ur Specific Wrights Urine Protein Urine Glucose (UA) Urine Ketones Urine Occult Blood Urine Nitrate Urine Bilirubin Urine Urobilinogen Ur Leukocyte Esterase Urine RBC Urine WBC Ur Squamous Epith Cells Urine Bacteria Ur Culture Indicated? A/P Narrative A/P Narrative: Assessment: 65 year old female with a history of hypertension, hyperlipidemia, type 2 diabetes mellitus, paroxysmal atrial fibrillation s/p ablation on Xarelto, left ventricular diastolic dysfunction, COPD, obstructive sleep apnea, depression congenital hemangioma abutting her heart s/p pericardectomy 2013 who presented to the ED with aphasia and admitted for ischemic stroke workup. Noncontrast CT head was negative, CTA head and neck also negative. NIHSS in the ED was 1. #Expressive aphasia, concern for acute ischemic stroke #Left lower lobe infiltrate on chest x-ray -clinically the patient does not appear to have pneumonia #Paroxysmal atrial fibrillation #Type 2 diabetes mellitus #Hypertension #Hyperlipidemia #Diastolic dysfunction grade III #COPD #JAMI #Depression #Obesity BMI 35 Plan -Continue Xarelto and Atorvastatin. -Permissive blood pressure. -Prn labetalol IV for SBP>220 or DBP>110. -MRI brain. -Follow up pending CTA head and neck report. -Transthoracic echocardiogram. -Hemoglobin A1c -Lipid panel. -Neurochecks/NIHSS. -senior rd engineer. -PT/OT/Speech. -Correction Humalog SSI-medium. -CT chest to better evaluate left lower lobe infiltrate. -Home medication reconciliation, resume essential meds. -DVT ppx: On Xarelto. -Code status: -Disposition: probably home when stable. Time Spent With Patient Time: Total time spent is greater than 50% in coordination of care (as documented) at patient's floor/unit and/or counseling patient:
[2021-11-06] MEDS ORDERED: NITROGLYCERIN 0.4 MG TAB.SUBL SL PRN (21:28)
[2021-11-06] MEDS ORDERED: ALBUTEROL SULFATE 200 PUFF INHALER INH PRN ×2 (21:28→22:15)
[2021-11-06] MEDS ORDERED: LORazepam 0.5 MG TABLET PO PRN ×2 (21:28→21:38)
[2021-11-06] MEDS ORDERED: INSULIN GLARGINE, HUMAN 1 UNIT/0.01 ML SQ SCH (21:35)
[2021-11-06] MEDS ORDERED: DEXTROSE 31 GM ORAL.SUSP PO PRN (21:38)
[2021-11-06] MEDS ORDERED: ONDANSETRON 4 MG/2 ML VIAL IV PRN (21:38)
[2021-11-06] MEDS ORDERED: DEXTROSE 50% 50 ML VIAL IV PRN (21:38)
[2021-11-06] MEDS ORDERED: SENNOSIDES 1 TABLET PO SCH (21:38)
[2021-11-06] MEDS ORDERED: ACETAMINOPHEN 325 MG TABLET PO PRN (21:38)
[2021-11-06] MEDS ORDERED: LABETALOL 5 MG/ML ML IV PRN (21:38)
[2021-11-06 21:40] LABS: Amphetamine Screen,Urine None detected; Barbiturate Screen,Urine None detected; Benzodiazepines Screen,Urine None detected; Cannabinoid Screen,Urine None detected; Cocaine Screen,Urine None detected; Opiate Screen,Urine Suspect Positive; Oxycodone, Urine Screen None detected; Phencyclidine Screen,Urine None detected
[2021-11-06] MEDS: DOCUSATE SODIUM 100 MG CAPSULE PO SCH (21:42)
[2021-11-06] MEDS ORDERED: HYDROcodone/APAP 5/325MG TABLET PO PRN (22:10)
[2021-11-06] MEDS: INSULIN LISPRO 1 UNIT/0.01 ML UNIT SQ SCH (22:23)
[2021-11-06] MEDS: 0.9 % SODIUM CHLORIDE 10 ML SYRINGE IV SCH (23:18)
--- NOTE | 2021-11-07 02:46 | Cat Scan Report ---
CLINICAL INFORMATION: CVA, stroke COMPARISON: None. TECHNIQUE: 80 cc of Isovue-370 were injected intravenously , and using SmartPrep to maximize cerebral arterial opacification, 0.625 mm helical slices were obtained from the skull base through the cerebral vertex. Following reconstruction , sagittal, coronal and axial reformatted images were processed and reviewed at multiple windows and levels. 3D volume rendered and MIP images were acquired at a independent workstation. The exam was performed using radiation dose optimization techniques including, but not limited to, automated exposure control, adjustment of the mA and/or kV according to patient size and use of iterative reconstruction technique. FINDINGS: The intracranial internal carotid, vertebral, basilar, anterior, middle and posterior cerebral arteries and their branches are well-opacified and normal in contour and caliber without significant stenosis, occlusion or other pathology. Superficial/deep cerebral veins and deep venous sinuses are widely patent. There is moderate bilateral TMJ anterior subluxation. A 7 mm polyp is seen in the inferior right maxillary sinus. The other sinuses are clear. A large glossal mass spans 5.1 x 4.5 cm it contains multiple calcifications ranging up to 8 mm. The leads IMPRESSION: Intracerebral arterial and venous vasculature are normal. 5.1 cm mass with multiple calcifications infiltrating the tongue. This could be inflammatory, due to an AVM or neoplastic process such as squamous cell carcinoma. Please correlate with physical exam findings Interpreted and Authenticated by: Vishal Ortiz 11/07/21
[2021-11-07] MEDS: 0.9 % SODIUM CHLORIDE 10 ML SYRINGE IV SCH ×2 (04:20→16:06)
--- NOTE | 2021-11-07 04:40 | Cat Scan Report ---
CLINICAL INFORMATION: Code stroke COMPARISON: None. TECHNIQUE: 80 cc of Isovue-300 were injected intravenously followed by 40 cc of normal saline flush. Using SmartPrep, 0.625 helical slices were obtained from the thoracic aortic arch through the [place]. Following reconstruction, 2.5 mm sagittal, coronal and axial reformatted images were processed. MIPS , 3-D volume rendering and CPR images were also constructed. The exam was performed using radiation dose optimization techniques including, but not limited to, automated exposure control, adjustment of the mA and/or kV according to patient size and use of iterative reconstruction technique. FINDINGS: The thoracic aortic arch is normal diameter with minimal intimal thickening and conventional aortic branching. The brachiocephalic, both subclavian, both common, internal and external carotid and both vertebral arteries are widely patent without significant abnormality. Eight 5 x 4.6 cm well-circumscribed gently lobulated soft tissue masses infiltrated the right glossal region. There are multiple calcifications ranging up to 8 mm within this mass. A second, identical but smaller (2.7 cm) mass is seen in the left anterior glossal region. There is mild thickening of the adjacent mylohyoid uncertain significance. IMPRESSION: 1. /Aortic arch, all carotid, both subclavian and vertebral arteries are widely patent. It should be noted that the common carotid arteries take extremely medial course in the retropharyngeal region. 2. 5 cm well-circumscribed soft tissue mass dominating the right glossal region with multiple calcifications. An identical, yet smaller (2.7 cm) mass seen in the left anterior glossal region. A larger mass partially obstructs the oral cavity. These are likely arteriovenous malformations. The possibility of malignancy, including squamous cell carcinoma, should be evaluated typically by otolaryngology. Interpreted and Authenticated by: Vishal Ortiz 11/07/21
[2021-11-07 07:08] LABS: HDL Cholesterol 43 mg/dL (>40); LDL Cholesterol,Calculated 62 mg/dL (<100); Non-HDL Cholesterol 85 mg/dL (<130); Triglycerides 120 mg/dL (<150)
[2021-11-07 07:30] LABS: Estimated Average Glucose(eAG) 157 mg/dL; Hemoglobin A1C 7.1 % Hgb (4.0-6.0)
[2021-11-07] MEDS: INSULIN LISPRO 1 UNIT/0.01 ML UNIT SQ SCH ×3 (07:40→16:46)
[2021-11-07] MEDS: GABAPENTIN 300 MG CAPSULE PO SCH ×2 (08:07→16:08)
[2021-11-07] MEDS: busPIRone 5 MG TABLET PO SCH ×2 (08:07→16:08)
[2021-11-07] MEDS: DOCUSATE SODIUM 100 MG CAPSULE PO SCH (08:08)
[2021-11-07] MEDS ORDERED: MONTELUKAST 10 MG TABLET PO SCH (09:00)
[2021-11-07] MEDS ORDERED: PAROXETINE HCL 40 MG PO SCH (09:00)
[2021-11-07] MEDS ORDERED: RIVAROXABAN 20 MG TABLET PO SCH (09:00)
[2021-11-07] MEDS ORDERED: LORazepam 0.5 MG TABLET PO SCH (09:00)
[2021-11-07] MEDS ORDERED: ASPIRIN 81 MG TAB.CHEW PO SCH (09:00)
[2021-11-07] MEDS ORDERED: DIGOXIN 125 MCG TABLET PO SCH (09:00)
[2021-11-07] MEDS ORDERED: PARoxetine 20 MG TABLET PO SCH (09:00)
--- NOTE | 2021-11-07 09:30 | Magnetic Resonance Report ---
CLINICAL INFORMATION: Expressive aphasia. Evaluate for CVA COMPARISON: None. TECHNIQUE:Sagittal T1 FLAIR, axial T1 FLAIR, T2 FLAIR propeller, T2 propeller, gradient, diffusion, ADC and coronal T2 weighted images were acquired. FINDINGS: The ventricles, sulci, fissures and cisterns are symmetrically enlarged compatible with mild age-related atrophy. No extra-axial fluid collections or mass appreciated. Scattered chronic ischemic foci in the cerebral white matter is typical for patient age. No region of restricted diffusion to suggest acute infarct. No hemorrhage, mass effect, edema or other acute finding. Signal void within the intracerebral arteries is normal. The 6 cm soft tissue mass infiltrating the right tongue including the base region with scattered phleboliths was well described on the CT report earlier today IMPRESSION: Mild atrophy with scattered chronic ischemic changes-typical for age. No evidence of acute infarct or other acute intracerebral abnormality Interpreted and Authenticated by: Vishal Ortiz 11/07/21
--- NOTE | 2021-11-07 10:19 | Cat Scan Report ---
CLINICAL INFORMATION: Cough pneumonia COMPARISON: Chest CT 02/04/2021 TECHNIQUE: 0.625 mm axial slices were obtained from the lung apices through the bases without intravenous contrast. 2.5 mm Sagittal, coronal and axial reformatted images were processed and reviewed at bone, lung and soft tissue windows. 7 mm axial MIP images were also reconstructed to optimize pulmonary nodule detection.The exam was performed using radiation dose optimization techniques including, but not limited to, automated exposure control, adjustment of the mA and/or kV according to patient size and use of iterative reconstruction technique. FINDINGS: Mediastinal windows show the heart is mildly enlarged. There is calcification of both aortic and mitral valves and scattered calcific plaque in the coronary arteries. Interestingly, there is a large amount of pericardial fibrosis inferiorly with scattered dystrophic calcifications. This was also seen on the 2002 CT: The volume of fibrosis appears to be unchanged. Focal dystrophic calcification is unchanged from the most recent CT from January 2021. There is mild enlargement of the central pulmonary arteries suggesting pulmonary hypertension: main pulmonary diameter 3.3 cm. Thoracic aorta is normal. There is no adenopathy in the mediastinal hilar or axillary regions. Esophagus is grossly normal. Thyroid is unremarkable. Pulmonary parenchymal windows show the lung volumes are elevated and there is mild dilatation of bronchi suggesting chronic bronchitis or asthma. Scattered bullae appreciated. Scattered fibrosis in the posterior segment of the left upper lobe and lingula appreciated There are no pedrito infiltrates or nodules. Pleural spaces are normal. Images through the superior abdomen show no abnormality IMPRESSION: 1. Moderate chronic bronchitis or asthma. Very few bullae scattered throughout both lungs suggest a component of mild emphysema. There is mild fibrosis the posterior segment left upper lobe and lingula. No acute infiltrates or new pulmonary abnormalities. 2. Mild enlargement central pulmonary arteries compatible with pulmonary hypertension-stable 3. Heavy pericardial fibrosis, with associated dystrophic calcifications, in the inferior paracardiac region. This was also seen on a remote [facility] CT from [facility] appears to be stable. Interpreted and Authenticated by: Vishal Ortiz 11/07/21
--- NOTE | 2021-11-07 14:09 | Discharge Summary ---
Discharge Provider Provider Patient information: Note initiated : 11/07/21 at 2:01 pm Service Date, if different from initiated Date: [] Patient: Gisselle Figueredo 65 y/o F admitted on 11/06/21 for Trouble finding words. Chief Complaint: [] Date of admission: 11/06/21 21:23 Discharge date: 11/07/21 Primary care physician: Jocelyn Dahl Consults: 11/06/21 Consult to Physician [CONS] Stat Comment: Consulting Provider: Aurelio Angela Reason For Exam: Physician to Consult Discharge Meds Discharge Medications Home Medications nitroglycerin 0.4 mg sublingual tablet 0.4 mg SL Q5MINP PRN #1 vial 01/01/17 [Rx Confirmed 11/07/21 Last Taken Unknown] aspirin 81 mg tablet,delayed release 81 mg PO DAILY 02/13/19 [History Confirmed 11/07/21 Last Taken 05/11/19] atorvastatin 40 mg tablet 40 mg PO HS 02/13/19 [History Confirmed 11/07/21 Last Taken 05/17/19] carvedilol 12.5 mg tablet 6.25 mg PO BIDCC 02/13/19 [History Confirmed 11/07/21 Last Taken 05/18/19] digoxin 125 mcg (0.125 mg) tablet 125 mcg PO DAILY 02/13/19 [History Confirmed 11/06/21 Last Taken 05/18/19] diltiazem HCl 180 mg capsule,extended release 24 hr 180 mg PO DAILY 02/13/19 [History Confirmed 11/07/21 Last Taken 05/18/19] glipizide 10 mg tablet, extended release 24 hr 20 mg PO DAILY 02/13/19 [History Confirmed 11/07/21 Last Taken 05/18/19] paroxetine HCl 40 mg tablet 40 mg PO DAILY 02/13/19 [History Confirmed 11/07/21 Last Taken 05/18/19] potassium chloride 10 mEq tablet,extended release 10 meq PO BIDCC 02/13/19 [History Confirmed 11/06/21 Last Taken 05/17/19] cholecalciferol (vitamin D3) 25 mcg (1,000 unit) tablet 1,000 unit PO DAILY 05/10/19 [History Confirmed 11/07/21 Last Taken 05/17/19] montelukast 10 mg tablet 10 mg PO DAILY 05/10/19 [History Confirmed 11/06/21 Last Taken Unknown] albuterol sulfate 90 mcg/actuation aerosol inhaler (ProAir HFA) 2 puff INHALATION .Q4-6H PRN g 10/03/20 [History Confirmed 11/07/21 Last Taken Unknown] mometasone (Asmanex Twisthaler) 2 inh INHALATION BID PRN 10/03/20 [History Confirmed 11/07/21 Last Taken Unknown] salmeterol 50 mcg/dose blister powder for inhalation (Serevent Diskus) 1 inh INHALATION QDAY PRN each 10/03/20 [History Confirmed 11/07/21 Last Taken Unknown] spironolactone 25 mg tablet 37.5 mg PO DAILY tab 10/03/20 [History Confirmed 11/07/21 Last Taken Unknown] gabapentin 300 mg capsule 300 mg PO TID cap 10/04/20 [History Confirmed 11/07/21 Last Taken Unknown] linagliptin 5 mg tablet (Tradjenta) 5 mg PO QDAY 10/04/20 [History Confirmed 11/07/21 Last Taken Unknown] lorazepam 0.5 mg tablet 0.5 mg PO PRN PRN tab 10/04/20 [History Confirmed 11/06/21 Last Taken Unknown] ascorbate calcium (vitamin C) 500 mg tablet 500 mg PO QDAY 01/29/21 [History Confirmed 11/07/21 Last Taken Unknown] ibuprofen 800 mg tablet 800 mg PO PRN PRN 01/29/21 [History Confirmed 11/07/21 Last Taken Unknown] aripiprazole 5 mg PO DAILY 11/06/21 [History Confirmed 11/06/21 Last Taken Unknown] buspirone 7.5 mg tablet 1 tab PO TID 11/06/21 [History Confirmed 11/06/21 Last Taken Unknown] donepezil 5 mg PO DAILY 11/06/21 [History Confirmed 11/06/21 Last Taken Unknown] hydrocodone 7.5 mg-acetaminophen 325 mg tablet 1 tab PO TIDP PRN 11/06/21 [History Confirmed 11/06/21 Last Taken Unknown] insulin glargine 100 unit/mL (3 mL) subcutaneous pen (Lantus Solostar U-100 Insulin) 100 unit SUBCUT HS 11/06/21 [History Confirmed 11/06/21 Last Taken Unknown] insulin lispro 100 unit/mL subcutaneous pen (Humalog KwikPen (U-100) Insulin) 15 unit SUBCUT TID 11/06/21 [History Confirmed 11/06/21 Last Taken Unknown] terbinafine 250 mg PO DAILY 11/06/21 [History Confirmed 11/07/21 Last Taken Unknown] tizanidine 2 - 4 mg PO PRN PRN 11/06/21 [History Confirmed 11/06/21 Last Taken Unknown] linaclotide 72 mcg capsule (Linzess) 1 cap PO QAM 11/07/21 [History Confirmed 11/07/21 Last Taken Unknown] rivaroxaban 20 mg tablet (Xarelto) 20 mg PO DAILY #30 tab 11/07/21 [Rx Last Taken Unknown] COURSE Hospital Course Hospital course: Ms. 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 The patient says that her symptoms began this evening at about 7:30 PM. Patient had a noncontrast head CT in the ED which did not show any acute changes. CTA head and neck report was pending when I spoke with the ED provider however I was told that radiology felt they were unremarkable. The patient was reviewed with telestroke neurology, recommendation was made to admit the patient to the hospital for further work-up for possible stroke. I evaluated the patient in the emergency department, her expressive aphasia had essentially resolved. She says that she had similar symptoms a few months ago which was evaluated at [facility] where the work-up including MRI brain was negative. She also had a similar episode about a year ago. Other work-up in the ED included CBC and chemistry panel which were unremarkable. Chest x-ray showed a small patchy left basilar infiltrate and small effusion however the patient clinically did not have any symptoms of pneumonia. Procalcitonin was 0.13. 11/07 Back to baseline, MRI brain was negative for acute infarct. CTA showed several toungue masses which are not new according to the patient, she has seen ENT for these in the past and they are felt to be hemangiomas according to the patient. CT chest did not reveal a pneumonia. Requested the community affairs director to place a referral to neurology in [place] or [place] to evaluate the patient for possible atypical seizure that might explain the patient's recurring symptoms of aphasia. Multiple prior stroke workups were negative for stroke and the latest MRI did not show any chronic infarcts. Confirmed the patient does take Xarelto for atrial fibrillation. Follow up pending ECHO report with PCP. Physical exam Head: Atraumatic, normal inspection. Eyes: normal appearance, no scleral icterus. Neck: full ROM Respiratory: no respiratory distress. Cardiovascular: Sternotomy scar, normal rate and rhythm, S1, S2. GI/Abdominal: soft, nontender, no guarding. Extremities: full range of motion, nontender. Neurological: CN II-XII intact, intact motor, intact sensation. Psychiatric: normal mood. Skin: warm, normal color Discharge diagnosis: Resolved aphasia Time Spent with Patient Time attestation: Total time spent providing and/or coordinating discharge services: EXAM Constitutional Vitals: Temp Pulse Resp BP Pulse Ox 97.6 F 75 14 146/67 93 11/07/21 11:07 11/07/21 11:07 11/07/21 11:07 11/07/21 11:07 11/07/21 11:07 Discharge Data Data Completed and Pending Labs on day of discharge: Labs from last 24 hours 11/07/21 11/06/21 11/06/21 05:38 20:48 19:10 WBC RBC Hgb Hct MCV MCH MCHC RDW Plt Count MPV Neut % (Auto) Lymph % (Auto) [place] % (Auto) Eos % (Auto) Baso % (Auto) Lymph # (Auto) [place] # (Auto) Eos # (Auto) Baso # (Auto) Absolute Neutrophils PT INR APTT Sodium Potassium Chloride Carbon Dioxide Anion Gap BUN Creatinine POC Creatinine GFR Calculation Glucose Hemoglobin A1c 7.1 H Estim Average Glucose 157 Calcium Total Bilirubin AST ALT Alkaline Phosphatase Troponin T C-Reactive Protein Total Protein Albumin Globulin Albumin/Globulin Ratio Triglycerides 120 Cholesterol 128 LDL Cholesterol, Calc 62 Non-HDL Cholesterol 85 HDL Cholesterol 43 Procalcitonin Urine Color Yellow Urine Appearance Clear Urine pH 5.5 Ur Specific [place] 1.015 Urine Protein Negative Urine Glucose (UA) >=1000 mg/dl A Urine Ketones Negative Urine Occult Blood Negative Urine Nitrate Negative Urine Bilirubin Negative Urine Urobilinogen Normal Ur Leukocyte Esterase Negative Urine RBC 1 Urine WBC < 1 Ur Squamous Epith Cells < 1 Urine Bacteria None Ur Culture Indicated? No Urine Opiates Screen Suspect positive A Ur Opiates Confirm Pending Ur Oxycodone Screen None detected Urine Methadone Screen None detected Ur Methadone Confirm TNP Ur Barbiturates Screen None detected Ur Barbiturate Confirm TNP Ur Phencyclidine Scrn None detected Urine PCP Confirm TNP Ur Amphetamines Screen None detected U Amphetamines Confirm TNP U Benzodiazepines Scrn None detected U Benzodiazepine Confm TNP Urine Cocaine Screen None detected Urine Cocaine Confirm TNP U Cannabinoids Confirm TNP U Marijuana (THC) Screen None detected 11/06/21 11/06/21 11/06/21 18:17 18:17 18:17 WBC RBC Hgb Hct MCV MCH MCHC RDW Plt Count MPV Neut % (Auto) Lymph % (Auto) [place] % (Auto) Eos % (Auto) Baso % (Auto) Lymph # (Auto) [place] # (Auto) Eos # (Auto) Baso # (Auto) Absolute Neutrophils PT INR APTT 30.9 Sodium Potassium Chloride Carbon Dioxide Anion Gap BUN Creatinine POC Creatinine GFR Calculation Glucose Hemoglobin A1c Estim Average Glucose Calcium Total Bilirubin AST ALT Alkaline Phosphatase Troponin T < 0.01 C-Reactive Protein Total Protein Albumin Globulin Albumin/Globulin Ratio Triglycerides Cholesterol LDL Cholesterol, Calc Non-HDL Cholesterol HDL Cholesterol Procalcitonin 0.13 H Urine Color Urine Appearance Urine pH Ur Specific [place] Urine Protein Urine Glucose (UA) Urine Ketones Urine Occult Blood Urine Nitrate Urine Bilirubin Urine Urobilinogen Ur Leukocyte Esterase Urine RBC Urine WBC Ur Squamous Epith Cells Urine Bacteria Ur Culture Indicated? Urine Opiates Screen Ur Opiates Confirm Ur Oxycodone Screen Urine Methadone Screen Ur Methadone Confirm Ur Barbiturates Screen Ur Barbiturate Confirm Ur Phencyclidine Scrn Urine PCP Confirm Ur Amphetamines Screen U Amphetamines Confirm U Benzodiazepines Scrn U Benzodiazepine Confm Urine Cocaine Screen Urine Cocaine Confirm U Cannabinoids Confirm U Marijuana (THC) Screen 11/06/21 11/06/21 11/06/21 18:17 18:17 18:17 WBC 4.8 RBC 5.10 Hgb 14.2 Hct 44.3 MCV 86.9 MCH 27.8 MCHC 32.1 RDW 13.7 Plt Count 202 MPV 9.9 Neut % (Auto) 55.2 Lymph % (Auto) 33.1 [place] % (Auto) 9.6 Eos % (Auto) 1.7 Baso % (Auto) 0.4 Lymph # (Auto) 1.59 [place] # (Auto) 0.46 Eos # (Auto) 0.08 Baso # (Auto) 0.02 Absolute Neutrophils 2.65 PT 15.9 H INR 1.2 H APTT Pending Sodium 137 Potassium 3.7 Chloride 99 Carbon Dioxide 25 Anion Gap 13.0 BUN 11 Creatinine 0.8 POC Creatinine 0.8 GFR Calculation 78 Glucose 179 H Hemoglobin A1c Estim Average Glucose Calcium 9.8 Total Bilirubin 0.5 AST 36 H ALT 69 H Alkaline Phosphatase 179 H Troponin T C-Reactive Protein Total Protein 7.8 Albumin 4.9 Globulin 2.9 Albumin/Globulin Ratio 1.7 Triglycerides Cholesterol LDL Cholesterol, Calc Non-HDL Cholesterol HDL Cholesterol Procalcitonin Urine Color Urine Appearance Urine pH Ur Specific [place] Urine Protein Urine Glucose (UA) Urine Ketones Urine Occult Blood Urine Nitrate Urine Bilirubin Urine Urobilinogen Ur Leukocyte Esterase Urine RBC Urine WBC Ur Squamous Epith Cells Urine Bacteria Ur Culture Indicated? Urine Opiates Screen Ur Opiates Confirm Ur Oxycodone Screen Urine Methadone Screen Ur Methadone Confirm Ur Barbiturates Screen Ur Barbiturate Confirm Ur Phencyclidine Scrn Urine PCP Confirm Ur Amphetamines Screen U Amphetamines Confirm U Benzodiazepines Scrn U Benzodiazepine Confm Urine Cocaine Screen Urine Cocaine Confirm U Cannabinoids Confirm U Marijuana (THC) Screen 11/06/21 18:16 WBC RBC Hgb Hct MCV MCH MCHC RDW Plt Count MPV Neut % (Auto) Lymph % (Auto) [place] % (Auto) Eos % (Auto) Baso % (Auto) Lymph # (Auto) [place] # (Auto) Eos # (Auto) Baso # (Auto) Absolute Neutrophils PT INR APTT Sodium Potassium Chloride Carbon Dioxide Anion Gap BUN Creatinine POC Creatinine GFR Calculation Glucose Hemoglobin A1c Estim Average Glucose Calcium Total Bilirubin AST ALT Alkaline Phosphatase Troponin T C-Reactive Protein 0.50 Total Protein Albumin Globulin Albumin/Globulin Ratio Triglycerides Cholesterol LDL Cholesterol, Calc Non-HDL Cholesterol HDL Cholesterol Procalcitonin Urine Color Urine Appearance Urine pH Ur Specific [place] Urine Protein Urine Glucose (UA) Urine Ketones Urine Occult Blood Urine Nitrate Urine Bilirubin Urine Urobilinogen Ur Leukocyte Esterase Urine RBC Urine WBC Ur Squamous Epith Cells Urine Bacteria Ur Culture Indicated? Urine Opiates Screen Ur Opiates Confirm Ur Oxycodone Screen Urine Methadone Screen Ur Methadone Confirm Ur Barbiturates Screen Ur Barbiturate Confirm Ur Phencyclidine Scrn Urine PCP Confirm Ur Amphetamines Screen U Amphetamines Confirm U Benzodiazepines Scrn U Benzodiazepine Confm Urine Cocaine Screen Urine Cocaine Confirm U Cannabinoids Confirm U Marijuana (THC) Screen Discharge Plan Patient/Caregiver Discharge Instructions Activity: increase activity as tolerated Diet: Consistent Carbohydrate Prescriptions: New Xarelto 20 mg Tablet 20 mg PO DAILY Qty: 30 5RF Continued Serevent Diskus 50 mcg/dose blister with device 1 inh INHALATION QDAY PRN (Reason: asthma) 0RF albuterol sulfate [ProAir HFA] 90 mcg/actuation HFA aerosol inhaler 2 puff INHALATION .Q4-6H PRN (Reason: Shortness Of Breath) 0RF Asmanex Twisthaler 220 mcg/ actuation (120) aerosol powdr breath activated 2 inh INHALATION BID PRN (Reason: asthma) 0RF Tradjenta 5 mg tablet 5 mg PO QDAY 0RF ibuprofen 800 mg tablet 800 mg PO PRN PRN (Reason: Pain) 0RF ascorbate calcium (vitamin C) 500 mg tablet 500 mg PO QDAY 0RF nitroglycerin 0.4 MG tablet, sublingual 0.4 mg SL Q5MINP PRN (Reason: chest pain or heaviness) Qty: 1 0RF atorvastatin 40 MG tablet 40 mg PO HS 0RF Label Comments: NO LONGER TAKING USING PRAVASTATIN NOW diltiazem HCl 180 MG capsule,extended release 24hr 180 mg PO DAILY 0RF glipizide 10 MG tablet extended release 24hr 20 mg PO DAILY 0RF potassium chloride 10 MEQ tablet extended release 10 meq PO BIDCC 0RF aspirin 81 MG tablet,delayed release (DR/EC) 81 mg PO DAILY 0RF digoxin 125 MCG tablet 125 mcg PO DAILY 0RF paroxetine HCl 40 MG tablet 40 mg PO DAILY 0RF carvedilol 12.5 MG tablet 6.25 mg PO BIDCC 0RF Rx Instructions: give with food (meal/snack) spironolactone 25 mg tablet 37.5 mg PO DAILY 0RF lorazepam 0.5 mg tablet 0.5 mg PO PRN PRN (Reason: Anxiety) 0RF gabapentin 300 mg capsule 300 mg PO TID 0RF montelukast 10 MG tablet 10 mg PO DAILY 0RF cholecalciferol (vitamin D3) 1,000 UNIT tablet 1,000 unit PO DAILY 0RF donepezil 5 mg tablet 5 mg PO DAILY 0RF tizanidine 2 mg tablet 2 - 4 mg PO PRN PRN (Reason: Muscle Spasticity) 0RF Rx Instructions: TAKE 1-2 TABLETS BY MOUTH EVERY 4-6 HOURS NEEDED FOR MUSCLE TENSION. WILL CAUSE SEDATION. aripiprazole 5 MG tablet 5 mg PO DAILY 0RF Rx Instructions: AT BEDTIME. terbinafine 250 MG tablet 250 mg PO DAILY 0RF hydrocodone-acetaminophen 7.5-325 mg tablet 1 tab PO TIDP PRN (Reason: pain) 0RF buspirone 7.5 mg tablet 1 tab PO TID 0RF insulin lispro [Humalog KwikPen Insulin] 100 unit/mL insulin pen 15 unit subcut TID 0RF Lantus Solostar U-100 Insulin 100 unit/mL (3 mL) insulin pen 100 unit subcut HS 0RF Linzess 72 mcg capsule 1 cap PO QAM 0RF Follow Up Plan Follow up with: Jocelyn Dahl ARNP [Primary Care Provider] - Patient Disposition: Home, Self-Care Overall status at discharge: patient is progressing back to baseline Discharge Orders: Discharge Order (Routine); Ordered 11/07/21 Ordered By: Aurelio Angela QUALITY VTE Deep Vein Thrombosis/Pulmonary Embolism Present on Admission: No
[2021-11-07] MEDS ORDERED: ARIPIPRAZOLE 5 MG TABLET PO SCH (21:00)
[2021-11-07] MEDS ORDERED: DONEPEZIL 10 MG TABLET PO SCH (21:00)
[2021-11-07] MEDS ORDERED: ATORVASTATIN 40 MG TABLET PO SCH (21:00)
--- NOTE | 2021-11-09 09:23 | EKG ---
[facility] Test Date: 2021-11-06 Pat Name: Gisselle Figueredo Department: ED Room: Gender: Female Evaluator: YAZ : 1955 Requested By: Barbara Thomas Order Number: [id number] Reading MD: Jovani Rhoades Measurements Intervals [place] Rate: 80 P: 74 NC: 171 QRS: 37 QRSD: 97 T: QT: 414 QTc: 478 Interpretive Statements Sinus rhythm Borderline low voltage, extremity leads Probable left ventricular hypertrophy Nonspecific T abnormalities, lateral leads Baseline wander in lead(s) V1 Electronically Signed On 11-09-2021 9:23:17 PDT by Jovani Rhoades /store/[email or web address]/[id number]
[2021-11-17 04:58] LABS: Opiate Confirmation Positive
== END 2021-11-07 16:55 | disposition home or self-care (01) ==
LOC: ED 17:43 → MEDSUR 17:43
PROVIDERS: ADMIT Internal Medicine; ATTEND Internal Medicine